=== PATIENT | female | born 1970 | race Caucasian/White ===

== ENCOUNTER 2018-12-05 18:17 | Emergency (ER) | payer BC ==
[~2018-12-05] VITALS: Ht 170.2 cm; Wt 89.4 kg
[2018-12-05] MEDS ORDERED: HYDROMORPHONE 1MG/1ML INJ IV STA (18:18)
[2018-12-05] MEDS ORDERED: SODIUM CHLORIDE 0.9% 1000ML 1,000 ML IV STA (18:18)
--- OUTSIDE RECORDS SUMMARY | 2018-12-05 18:19 | XMS REPORT | CCD ---
Author Author Auto Generated Organization [facility] Address Unknown Phone Unavailable Care Team Providers Care Manager [employer] Name Role Phone Brian Willis CP Allergies, Adverse Reactions, Alerts Substance Reaction Status NKDA Active Medications Medication Instructions Start Date End Date Status [place] 10/325 oral 1 tab, PO, Q6H, PRN, 30 tab, pain, 02/01/2013 Ordered tablet Substitution Allowed, Maintenance Keflex 500 mg oral 500 mg, 1 cap, PO, QID, 40 cap, 02/01/2013 02/11/2013 Ordered capsule Substitution Allowed, CAP Vital Signs Most recent to oldest [Reference Range]: 1 Height 170.18 cm (02/01/2013 07:46:00) Weight 66.364 kg (02/01/2013 07:46:00) Procedures Procedures Date Related Diagnosis Breast augmentation Carpal tunnel release Eyelid repair Tubal ligation
--- OUTSIDE RECORDS SUMMARY | 2018-12-05 18:19 | XMS REPORT | CCD ---
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 Role Phone Jamey Graham CP Allergies, Adverse Reactions, Alerts Substance Reaction Status NKDA Active Medications Medication Instructions Start Date End Date Status Saline Flush 0.9% 5 ml, Route: IVP, Drug Form: INJ, 03/31/2012 03/31/2012 Discontinued PRN, PRN Line Flush, Start date: 03/31/12 20:18:00, Duration: 24 hr, Stop date: 04/01/12 20:17:00 [place] 5/325 oral 1-2 tab, PO, Q4-6H, PRN, 30 tab, 03/31/2012 04/05/2012 Ordered tablet Pain, Substitution Allowed, Soft Stop Zofran 4 mg, Route: IVP, Drug form: INJ, 03/31/2012 03/31/2012 Completed ONCE, Priority: STAT, Start date: 03/31/12 20:20:00, Stop date: 03/31/12 20:20:00 morphine Sulfate 4 mg, Route: IVP, ONCE, Priority: 03/31/2012 03/31/2012 Completed STAT, Start date: 03/31/12 20:20:00, Stop date: 03/31/12 20:20:00 Vital Signs Most recent to oldest [Reference Range]: 1 Height 170.18 cm (03/31/2012 20:14:00) Weight 84.091 kg (03/31/2012 20:14:00) Results CHEMISTRY Most recent to oldest [Reference Range]: 1 Sodium Lvl [135-145 mEq/L] 140 mEq/L (03/31/2012 20:17:00) Potassium Lvl [3.5-5.1 mEq/L] 3.6 mEq/L (03/31/2012 20:17:00) Chloride Lvl [95-109 mEq/L] 108 mEq/L (03/31/2012 20:17:00) CO2 [24-32 mEq/L] 24 mEq/L (03/31/2012:17:00) AGAP [10.0-20.0 mEq/L] 11.6 mEq/L (03/31/2012:17:00) Creatinine Lvl [0.5-1.4 mg/dL] 1.1 mg/dL (03/31/2012 20:17:00) BUN [7-22 mg/dL] 19 mg/dL (03/31/2012:17:00) B/C Ratio [6-25] 17 (03/31/2012:17:00) Glucose Lvl [70-99 mg/dL] 88 mg/dL 1 (03/31/2012 20:17:00) Total Protein [6.4-8.4 g/dL] 7.5 g/dL (03/31/2012 20:17:00) Albumin Lvl [3.5-5.0 g/dL] 3.9 g/dL (03/31/2012 20:17:00) Globulin [2.0-4.0 g/dL] 3.6 g/dL (03/31/2012 20:17:00) A/G Ratio [0.7-1.6] 1.1 (03/31/2012:17:00) Calcium Lvl [8.5-10.5 mg/dL] 8.5 mg/dL (03/31/2012:17:00) Phosphorus [2.5-4.5 mg/dL] 4.2 mg/dL (03/31/2012:17:00) Magnesium Lvl [1.8-2.4 mg/dL] 2.1 mg/dL (03/31/2012 20:17:00) ALT [0-65 U/L] 30 U/L (03/31/2012 20:17:00) AST [0-37 U/L] 19 U/L (03/31/2012 20:17:00) Alk Phos [39-136 U/L] 50 U/L (03/31/2012 20:17:00) Bili Total [0.2-1.3 mg/dL] 0.2 mg/dL (03/31/2012:17:00) Lipase Lvl [73-393 U/L] 150 U/L (03/31/2012:17:00) Total CK [12-191 U/L] 174 U/L (03/31/2012:17:00) CK MB [0.5-3.6 ng/mL] 0.6 ng/mL (03/31/2012:17:00) CK MB Index [0.0-2.5] 0.3 (03/31/2012:17:00) Troponin-I [0.00-0.40 ng/mL] <0.02 ng/mL (03/31/2012:17:00) BNP [<=100 pg/mL] 29 pg/mL 2 (03/31/2012:17:00) S Preg [Negative] Negative *NA* (03/31/2012 21:21:00) 1Interpretive Data: Adult reference range values reflect the clinical guidelines of the [place] [employer]. 2Interpretive Data: Elevated results are in line with increasing severity of congestive heart failure. Minor elevations between 100 and 300 may be seen with Myocardial Ischemia, Sodium retaining drugs, and compensated/treated heart failure. HEMATOLOGY Most recent to oldest [Reference Range]: 1 WBC [3.7-10.4 K/CMM] 7.2 K/CMM (03/31/2012:17:00) RBC [4.20-5.40 M/CMM] 4.26 M/CMM (03/31/2012:17:00) Hgb [12.0-16.0 g/dL] 13.6 g/dL (03/31/2012:17:00) Hct [36.0-48.0 %] 39.7 % (03/31/2012:17:00) MCV [81.0-99.0 fL] 93.3 fL (03/31/2012:17:00) MCH [27.0-31.0 pg] 31.9 pg *HI* (03/31/2012:17:00) MCHC [32.0-36.0 g/dL] 34.2 g/dL (03/31/2012:17:00) RDW [11.5-14.5 %] 13.0 % (03/31/2012 20:17:00) Platelet [133-450 K/CMM] 208 K/CMM (03/31/2012 20:17:00) MPV [7.4-10.4 fL] 9.2 fL (03/31/2012 20:17:00) Segs [45.0-75.0 %] 48.1 % (03/31/2012 20:17:00) Lymphocytes [20.0-40.0 %] 40.4 % *HI* (03/31/2012 20:17:00) Monocytes [2.0-12.0 %] 9.7 % (03/31/2012 20:17:00) Eosinophils [0.0-4.0 %] 1.6 % (03/31/2012 20:17:00) Basophils [0.0-1.0 %] 0.2 % (03/31/2012 20:17:00) Segs-Bands # [1.5-8.1 K/CMM] 3.5 K/CMM (03/31/2012 20:17:00) Lymphocytes # [1.0-5.5 K/CMM] 2.9 K/CMM (03/31/2012 20:17:00) Monocytes # [0.0-0.8 K/CMM] 0.7 K/CMM (03/31/2012 20:17:00) Eosinophils # [0.0-0.5 K/CMM] 0.1 K/CMM (03/31/2012 20:17:00) Basophils # [0.0-0.2 K/CMM] 0.0 K/CMM (03/31/2012 20:17:00) PT [12.0-14.7 seconds] 12.0 seconds (03/31/2012 20:17:00) INR [0.85-1.17] 0.88 3 (03/31/2012 20:17:00) PTT [22.9-35.8 seconds] 32.3 seconds 4 (03/31/2012 20:17:00) 3Interpretive Data: RECOMMENDED RANGES FOR PROTIME INR: 2.0-3.0 for most medical and surgical thromboembolic states. 2.5-3.5 for artificial heart valves and recurrent embolism. INR SHOULD BE USED ONLY FOR PATIENTS ON STABLE ANTICOAGULANT THERAPY. 4Interpretive Data: Heparin Therapeutic Range: 57 - 92 Seconds
--- OUTSIDE RECORDS SUMMARY | 2018-12-05 18:19 | XMS REPORT ---
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 Allergies, Adverse Reactions, Alerts This patient has no known allergies or adverse reactions. Medications This patient has no known medications.
--- OUTSIDE RECORDS SUMMARY | 2018-12-05 18:19 | XMS REPORT | Summary of Care ---
Author Author [facility] Outpatient Imaging [facility] Address Unknown Phone Unavailable Encounter HQ Encntr_alias(FIN) [id number] Date(s): 03/07/18 - 03/07/18 [facility] Outpatient Imaging [facility] [id number] [facility], [address] [place], [place] [address] [phone] Discharge Disposition: Home or Self Care Attending Physician: Taylor Cormier MD Vital Signs No data available for this section Problem List No data available for this section Allergies, Adverse Reactions, Alerts Substance Reaction Severity Status NKDA Active Medications No data available for this section Results No data available for this section Immunizations No data available for this section Procedures Procedure Date Related Diagnosis Body Site Status Breast augmentation Completed Carpal tunnel release Completed Eyelid repair Completed Tubal ligation Completed Social History No data available for this section Assessment and Plan No data available for this section
--- OUTSIDE RECORDS SUMMARY | 2018-12-05 18:19 | XMS REPORT | Continuity of Care Document ---
Author Author [facility] Address Unknown Phone Unavailable Problems Problem Status Onset Date Classification Date Reported Comments Source M25.552 - PAIN IN LEFT HIP Active 03/07/2018 [facility] LACERATION Active 02/01/2013 [facility] CHEST PAIN Active 03/31/2012 [facility] Medications Medication Details Route Status Patient Instructions Ordering Provider Order Date Source [place] 10/325 oral tablet 1 tab, PO, Q6H, PRN, 30 tab, pain, Substitution Allowed, Maintenance PO Active Gong 02/01/2013 [facility] Keflex 500 mg oral capsule 500 mg, 1 cap, PO, QID, 40 cap, Substitution Allowed, CAP PO Active Gong 02/01/2013 [facility] [place] 5/325 oral tablet 1-2 tab, PO, Q4-6H, PRN, 30 tab, Pain, Substitution Allowed, Soft Stop PO Active Nriagu 04/01/2012 [facility] Zofran 4 mg, Route: IVP, Drug form: INJ, ONCE, Priority: STAT, Start date: 03/31/12 20:20:00, Stop date: 03/31/12 20:20:00 IVP No Longer Active Nriagu 04/01/2012 [facility] morphine Sulfate 4 mg, Route: IVP, ONCE, Priority: STAT, Start date: 03/31/12 20:20:00, Stop date: 03/31/12 20:20:00 IVP No Longer Active Nriagu 04/01/2012 [facility] Saline Flush 0.9% 5 ml, Route: IVP, Drug Form: INJ, PRN, PRN Line Flush, Start date: 03/31/12 20:18:00, Duration: 24 hr, Stop date: 04/01/12 20:17:00 IVP No Longer Active Nriagu 04/01/2012 [facility] Allergies, Adverse Reactions, Alerts Substance Category Reaction Severity Reaction type Status Date Reported Comments Source Immunizations Immunization Date Given Site Status Last Updated Comments Source Results Order Name Results Value Reference Range Date Interpretation Comments Source Hip 2/3 views uni w pelvis DX Hip 2/3 views uni w pelvis DX EXAM: XR HIP 1 VIEW AND AP PELVIS DATE: 03/07/2018 3:20 PM CDT INDICATION: - M25.552 Pain in left hip COMPARISON: None TECHNIQUE: 1 view of the hip and a single AP radiograph of the pelvis Laterality: Left FINDINGS: No acute fracture or malalignment is identified. Hip joint spaces are preserved bilaterally. 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 No soft tissue abnormality is identified. IMPRESSION: 1. Bilateral acetabular dysplasia, right slightly worse than left. 2. No arthritic changes of the hips. 03/07/2018 - - Read by: Raghavendra Cash MD Dictated Date/time: 03/07/18 15:59 Electronically Signed by: Raghavendra Cash MD 03/07/18 16:00 FINAL REPORT [facility] CHEMISTRY S Preg Negative *NA* (03/31/2012 21:21:00) Negative 04/01/2012 NA [facility] CHEMISTRY BNP 29 pg/mL <=100 04/01/2012 Normal 2Interpretive Data: Elevated results are in line with increasing severity of congestive heart failure. Minor elevations between 100 and 300 may be seen with Myocardial Ischemia, Sodium retaining drugs, and compensated/treated heart failure. [facility] CHEMISTRY B/C Ratio 17 6 - 25 04/01/2012 Normal [facility] CHEMISTRY AGAP 11.6 meq/L 10.0 - 20.0 04/01/2012 Normal [facility] CHEMISTRY Chloride Lvl 108 meq/L 95 - 109 04/01/2012 Normal [facility] CHEMISTRY CO2 24 meq/L 24 - 32 04/01/2012 Normal [facility] CHEMISTRY Potassium Lvl 3.6 meq/L 3.5 - 5.1 04/01/2012 Normal [facility] CHEMISTRY Calcium Lvl 8.5 mg/dL 8.5 - 10.5 04/01/2012 Normal [facility] CHEMISTRY Albumin Lvl 3.9 g/dL 3.5 - 5.0 04/01/2012 Normal [facility] CHEMISTRY Glucose Lvl 88 mg/dL 70 - 99 04/01/2012 Normal 1Interpretive Data: Adult reference range values reflect the clinical guidelines of the [place] [employer]. [facility] CHEMISTRY Sodium Lvl 140 meq/L 135 - 145 04/01/2012 Normal [facility] CHEMISTRY BUN 19 mg/dL 7 - 22 04/01/2012 Normal [facility] CHEMISTRY Creatinine Lvl 1.1 mg/dL 0.5 - 1.4 04/01/2012 Normal [facility] CHEMISTRY Alk Phos 50 U/L 39 - 136 04/01/2012 Normal [facility] CHEMISTRY ALT 30 U/L 0 - 65 04/01/2012 Normal [facility] CHEMISTRY AST 19 U/L 0 - 37 04/01/2012 Normal [facility] CHEMISTRY A/G Ratio 1.1 0.7 - 1.6 04/01/2012 Normal [facility] CHEMISTRY Total Protein 7.5 g/dL 6.4 - 8.4 04/01/2012 Normal [facility] CHEMISTRY Globulin 3.6 g/dL 2.0 - 4.0 04/01/2012 Normal [facility] CHEMISTRY Bili Total 0.2 mg/dL 0.2 - 1.3 04/01/2012 Normal [facility] CHEMISTRY Total CK 174 U/L 12 - 191 04/01/2012 Normal [facility] CHEMISTRY CK MB 0.6 ng/mL 0.5 - 3.6 04/01/2012 Normal [facility] CHEMISTRY Troponin-I null 0.00 - 0.40 04/01/2012 Normal [facility] CHEMISTRY Magnesium Lvl 2.1 mg/dL 1.8 - 2.4 04/01/2012 Normal [facility] CHEMISTRY Phosphorus 4.2 mg/dL 2.5 - 4.5 04/01/2012 Normal [facility] CHEMISTRY Lipase Lvl 150 U/L 73 - 393 04/01/2012 Normal [facility] CHEMISTRY CK MB Index 0.3 0.0 - 2.5 04/01/2012 Normal [facility] HEMATOLOGY Platelet 208 K/CMM 133 - 450 04/01/2012 Normal [facility] HEMATOLOGY MPV 9.2 fL 7.4 - 10.4 04/01/2012 Normal [facility] HEMATOLOGY WBC 7.2 K/CMM 3.7 - 10.4 04/01/2012 Normal [facility] HEMATOLOGY RDW 13.0 % 11.5 - 14.5 04/01/2012 Normal [facility] HEMATOLOGY MCH 31.9 pg 27.0 - 31.0 04/01/2012 HI [facility] HEMATOLOGY MCHC 34.2 g/dL 32.0 - 36.0 04/01/2012 Normal [facility] HEMATOLOGY Hgb 13.6 g/dL 12.0 - 16.0 04/01/2012 Normal [facility] HEMATOLOGY RBC 4.26 M/CMM 4.20 - 5.40 04/01/2012 Normal [facility] HEMATOLOGY Hct 39.7 % 36.0 - 48.0 04/01/2012 Normal [facility] HEMATOLOGY MCV 93.3 fL 81.0 - 99.0 04/01/2012 Normal [facility] HEMATOLOGY INR 0.88 0.85 - 1.17 04/01/2012 Normal 3Interpretive Data: RECOMMENDED RANGES FOR PROTIME INR: 2.0-3.0 for most medical and surgical thromboembolic states. 2.5-3.5 for artificial heart valves and recurrent embolism. INR SHOULD BE USED ONLY FOR PATIENTS ON STABLE ANTICOAGULANT THERAPY. [facility] HEMATOLOGY PTT 32.3 s 22.9 - 35.8 04/01/2012 Normal 4Interpretive Data: Heparin Therapeutic Range: 57 - 92 Seconds [facility] PT 12.0 s 12.0 - 14.7 04/01/2012 Normal [facility] HEMATOLOGY Lymphocytes # 2.9 K/CMM 1.0 - 5.5 04/01/2012 Normal [facility] Monocytes # 0.7 K/CMM 0.0 - 0.8 04/01/2012 Normal [facility] HEMATOLOGY Basophils 0.2 % 0.0 - 1.0 04/01/2012 Normal [facility] HEMATOLOGY Segs-Bands # 3.5 K/CMM 1.5 - 8.1 04/01/2012 Normal [facility] HEMATOLOGY Eosinophils # 0.1 K/CMM 0.0 - 0.5 04/01/2012 Normal [facility] HEMATOLOGY Basophils # 0.0 K/CMM 0.0 - 0.2 04/01/2012 Normal [facility] Lymphocytes 40.4 % 20.0 - 40.0 04/01/2012 HI [facility] HEMATOLOGY Monocytes 9.7 % 2.0 - 12.0 04/01/2012 Normal [facility] HEMATOLOGY Segs 48.1 % 45.0 - 75.0 04/01/2012 Normal [facility] HEMATOLOGY Eosinophils 1.6 % 0.0 - 4.0 04/01/2012 Normal [facility] Vital Signs Vital Sign Value Date Comments Source Height 170.18 cm 02/01/2013 [facility] Weight 66.364 02/01/2013 [facility] Weight 84.091 04/01/2012 [facility] Height 170.18 cm 04/01/2012 [facility] Encounters Location Location Details Encounter Type Encounter Number Reason For Visit Attending Provider ADM Date DC Date Status Source [facility] Emergency [id number] BARRINGTON HOROWITZ 03/31/2012 03/31/2012 Active [facility] Emergency [id number] MINNA GOMEZ 02/01/2013 02/01/2013 Active [facility] [place] [facility] [id number] Taylor Cormier 03/07/2018 03/08/2018 [facility] Procedures Procedure Code Date Perfomer Comments Source Breast augmentation [id number] [facility] Carpal tunnel release [id number] [facility] Eyelid repair [facility] Tubal ligation [id number] [facility] Breast augmentation [id number] [facility] Carpal tunnel release [id number] [facility] Eyelid repair [id number] [facility] Tubal ligation [id number] [facility]
[2018-12-05] MEDS ORDERED: HYDROMORPHONE 2MG/ML 2 MG/ML ML IV ONE (18:30)
[2018-12-05] MEDS ORDERED: KETOROLAC TROMETHAMINE 30 MG/ML VIAL IV ONE (18:30)
[2018-12-05 18:47] LABS: BASOPHILS % 0.4 % (0.0-1.0); EOSINOPHILS # (AUTO) 0.1 (0.0-0.4); EOSINOPHILS % 0.9 % (0.0-6.0); HEMATOCRIT 41.4 % (34.2-44.1); HEMOGLOBIN 13.8 g/dL (12.0-16.0); LYMPHOCYTES # (AUTO) 2.4 (1.0-3.2); MEAN CORPUSCULAR HEMOGLOBIN 30.9 pg (28-32); MEAN CORPUSCULAR HGB CONC 33.3 g/dL (31-35); MEAN CORPUSCULAR VOLUME 92.8 fL (81-99); MONOCYTES # (AUTO) 0.7 (0.2-0.8); MONOCYTES % 8.5 % (4.4-11.3); NEUTROPHILS # (AUTO) 4.7 (2.1-6.9); NEUTROPHILS % 59.9 % (38.7-80.0); PLATELET COUNT 219 x10e3/uL (140-360); RED BLOOD COUNT 4.46 x10e6/uL (3.6-5.1); RED CELL DISTRIBUTION WIDTH 12.6 % (11.7-14.4)
[2018-12-05 18:59] LABS: BILIRUBIN,URINE NEGATIVE (NEGATIVE); CLARITY,URINE SL CLOUDY (CLEAR); COLOR,URINE YELLOW (YELLOW); KETONES,URINE TRACE (NEGATIVE); LEUKOCYTE ESTERASE ,URINE NEGATIVE (NEGATIVE); NITRITE,URINE NEGATIVE (NEGATIVE); PROTEIN,URINE DIPSTICK NEGATIVE (NEGATIVE); URINE UROBILINOGEN 0.2 mg/dL (0.2 - 1)
[2018-12-05 19:01] LABS: ALANINE AMINOTRANSFERASE 19 IU/L (0-55); ALBUMIN 4.1 g/dL (3.5-5.0); ALBUMIN/GLOBULIN RATIO 1.2 (0.8-2.0); ALKALINE PHOSPHATASE 43 IU/L (40-150); ANION GAP 11.7 mmol/L (8-16); BLOOD UREA NITROGEN 15 mg/dL (7-26); BUN/CREATININE RATIO 15 (6-25); CARBON DIOXIDE 24 mmol/L (22-29); CHLORIDE 102 mmol/L (98-107); CREATININE, SERUM 0.98 mg/dL (0.57-1.11); EST GLOMERULAR FILTRATION RATE > 60 ML/MIN (60-); GLUCOSE 96 mg/dL (74-118); POTASSIUM 3.7 mmol/L (3.5-5.1); SODIUM 134 mmol/L (136-145)
--- NOTE | 2018-12-05 19:05 | NUR ---
REPORT GIVEN TO RANJITH MATUTE
[2018-12-05 19:10] LABS: EPITHELIAL CELLS,URINE RARE /LPF; RBC,URINE 0-5 /HPF (0-5)
--- NOTE | 2018-12-05 19:47 | Diagnostic Imaging Report ---
EXAM: CT of the abdomen and pelvis WITHOUT contrast HISTORY: STONE PROTOCOL, left flank pain COMPARISON: None available. TECHNIQUE: The abdomen and pelvis were scanned utilizing a multidetector helical scanner. Coronal and sagittal reformats are available. PROTOCOL: Renal colic IV CONTRAST: None, which limits sensitivity and specificity of evaluation of the soft tissues and vascular structures. ORAL CONTRAST: None, which limits sensitivity and specificity of evaluation of the bowel. RADIATION DOSE: Total DLP: 604.5 mGy*cm Estimated effective dose: (DLP x 0.015 x size factor) Dose modulation, iterative reconstruction, and/or weight based adjustment of the mA/kV was utilized to reduce the radiation dose to as low as reasonably achievable. COMPLICATIONS: None FINDINGS: LOWER THORAX: Unremarkable. HEPATOBILIARY: No definite focal hepatic lesions. No biliary ductal dilatation. The gallbladder is unremarkable. SPLEEN: No splenomegaly. PANCREAS: No focal masses or ductal dilatation. ADRENALS: No adrenal nodule. KIDNEYS/URETERS: No hydronephrosis. A 5 mm calcification near the inferior pole of the left kidney. PELVIC ORGANS/BLADDER: The visualized pelvic organs appear unremarkable. The uterus is anteflexed. PERITONEUM / RETROPERITONEUM: No free air or fluid. GI TRACT: On limited evaluation of the gastrointestinal tract, no dilation or wall thickening identified. The appendix appears normal. The stomach is decompressed, limiting evaluation. LYMPH NODES: No pathologically enlarged lymph nodes. VESSELS: Minimal scattered atherosclerotic vascular calcifications. BONES: No aggressive osseous lesion or acute fracture. SOFT TISSUES: Partially visualized bilateral breast implants. Small fat-containing umbilical hernia without associated inflammatory changes. IMPRESSION: A 5 mm nonobstructing left renal stone. Signed by: Dr. Elvin Kimball D.O., M.M.M. on 12/05/2018 7:44 PM
[2018-12-05] MEDS ORDERED: KETOROLAC TROME10 MG PO (19:58)
[2018-12-05] MEDS ORDERED: TYLENOL WITH C1 EACH PO (19:58)
[2018-12-05 20:50] VITALS: BP 125/77
== END 2018-12-05 20:52 | disposition home or self-care (01) ==
LOC: ER 18:17
DX: M54.5 Low back pain (principal); R10.9 Unspecified abdominal pain; R31.9 Hematuria, unspecified; N20.0 Calculus of kidney
CPT/HCPCS: 36415; 74176; 80053; 81001; 83735; 84702; 85025; 87086; 99284; J1170; J1885; J7030